=== PATIENT | female | born 1945 | race Caucasian/White ===

== ENCOUNTER 2018-08-30 19:32 | Emergency (ER) | payer MEDICARE, BC ==
[~2018-08-30] VITALS: Ht 170.2 cm; Wt 66.0 kg
[2018-08-30 20:58] VITALS: BP 110/57
== END 2018-08-30 21:03 | disposition home or self-care (01) ==
LOC: ER 19:33
DX: S09.90XA Unspecified injury of head, initial encounter (principal); F03.90 Unspecified dementia, unspecified severity, without behavioral disturbance, psychotic disturbance, mood disturbance, and anxiety; I10 Essential (primary) hypertension; Z98.890 Other specified postprocedural states; W01.198A Fall on same level from slipping, tripping and stumbling with subsequent striking against other object, initial encounter; Y93.89 Activity, other specified; Y92.89 Other specified places as the place of occurrence of the external cause; Y99.9 Unspecified external cause status
CPT/HCPCS: 70450; 72125; 99284